=== PATIENT | male | born 1990 ===

== ENCOUNTER 2023-10-06 10:49 | Outpatient (CLI) | payer BC, SELFPAY ==
--- NOTE | ~2023-10-06 | MR_ITS ---
MRI of the right shoulder Technique: Axial proton-density fat-sat images, coronal proton density fat-sat and T2 fat-sat images, and sagittal T1-weighted and T2 fat-sat images were acquired. Clinical History: Injury Findings: There is mild AC joint degenerative change. Coracoclavicular, coracoacromial, and coracohum eral ligaments are intact. Supraspinatus and infraspinatus tendons are intact, without partial or full-thickness tear. Subscapul megha tendon is intact, with mild tendinosis. Tendon of long head of the biceps is intact. No labral tear seen. Inferior humeral ligament intact. No significant effusion or degenerative change of the glenohumeral joint. No fluid distention of the subacromial/subdeltoid bursa. No muscle atrophy or edema. Impression: Mild subscapularis tendinosis. Mild AC joint degenerative change. Reviewed, dictated and finalized at [facility]. Impression: Mild subscapularis tendinosis. Mild AC joint degenerative change.
== END 2023-10-06 10:50 ==
PROVIDERS: PCP Physician Assistant; Visit Provider Physician Assistant
DX: M67.813 Other specified disorders of tendon, right shoulder (principal); M19.011 Primary osteoarthritis, right shoulder
CPT/HCPCS: 73221